=== PATIENT | female | born 1995 ===

== ENCOUNTER 2018-07-27 17:00 | Emergency (ER) | payer SELFPAY ==
[2018-07-27 18:26] LABS: Hep C IgG Ab Non-Reactive (NonReactive); Hep C Index 0.03 S/CO (0-0.79)
[2018-07-27 18:27] LABS: HIV (1/2) Antibody/Antigen Non-Reactive (NonReactive); HIV 1/2 INDEX 0.16 S/CO (<1.00)
[2018-07-27 18:28] LABS: HBSAB Concentration 242.07 mIU/mL; Hep B Surf AB Reactive (NonReactive)
== END 2018-07-27 18:28 | disposition home or self-care (01) ==
LOC: ERS 17:00
DX: Z77.21 Contact with and (suspected) exposure to potentially hazardous body fluids (principal)
CPT/HCPCS: 36415; 86706; 86803; 87389; 99283